=== PATIENT | male | born 1985 | race African-American/Black ===

== ENCOUNTER 2024-10-10 10:22 | Outpatient (CLI) | payer BC, SELFPAY ==
--- NOTE | 2024-10-10 10:40 | NEURO_ITS ---
Impression: # Complains of left upper extremity numbness ? # No Carpal Tunnel Syndrome ? # No Ulnar Neuropathy ? # Normal Needle/ EMG exam ? # Clinical correlation recommended Nerve Conduction Studies ?Stim Site NR Peak (ms) P-T Amp (?V) Site1 Site2 Delta-P (ms) Dist (cm) Nahid (m/s) Left Median Anti Sensory (2-3nd Digit) Wrist ? 2.7 52.9 Wrist 2-3nd Digit 2.7 14.0 52 Wrist ? 2.7 39.4 Wrist 2-3nd Digit 2.7 14.0 52 Right Median Anti Sensory (2-3nd Digit) Wrist ? 2.8 40.4 Wrist 2-3nd Digit 2.8 14.0 50 Wrist ? 2.7 36.9 Wrist 2-3nd Digit 2.8 14.0 50 Left Radial Anti Sensory (Base 1st Digit) Wrist ? 1.8 17.3 Wrist Base 1st Digit 1.8 0.0 Right Radial Anti Sensory (Base 1st Digit) Wrist ? 1.8 11.5 Wrist Base 1st Digit 1.8 0.0 Left Ulnar Anti Sensory (5th Digit) Wrist ? 2.4 29.8 Wrist 5th Digit 2.4 14.0 58 Right Ulnar Anti Sensory (5th Digit) Wrist ? 2.3 28.3 Wrist 5th Digit 2.3 14.0 61 ?Stim Site NR Onset (ms) O-P Amp (mV) Site1 Site2 Delta-0 (ms) Dist (cm) Nahid (m/s) Left Median Motor (Abd Poll Brev) Wrist ? 3.3 1.5 Elbow Wrist 4.7 27.0 57 Elbow ? 8.0 1.1 Right Median Motor (Abd Poll Brev) Wrist ? 2.8 4.4 Elbow Wrist 4.4 28.0 64 Elbow ? 7.2 4.2 Left Ulnar Motor (Abd Dig Minimi) Wrist ? 2.3 6.2 A Elbow Wrist 5.2 29.0 56 A Elbow ? 7.5 4.0 B Elbow Wrist 3.9 22.0 56 B Elbow ? 6.2 2.0 Right Ulnar Motor (Abd Dig Minimi) Wrist ? 2.4 5.3 A Elbow Wrist 5.1 29.0 57 A Elbow ? 7.5 4.6 B Elbow Wrist 3.8 20.0 53 B Elbow ? 6.2 3.3 F Wave Studies ?NR F-Lat (ms) L-R F-Lat (ms) Left Median (Mrkrs) (Abd Poll Brev) ? 26.25 1.12 Right Median (Mrkrs) (Abd Poll Brev) ? 25.13 1.12 Left Ulnar (Mrkrs) (Abd Dig Min) ? 27.58 0.55 Right Ulnar (Mrkrs) (Abd Dig Min) ? 27.03 0.55 Electromyography ?Side Muscle Nerve Root Ins Act Fibs Amp Dur Recrt Comment Right 1stDorInt Ulnar C8-T1 Nml Nml Nml Nml Nml Right Ext Indicis Radial (Post Int) C7-8 Nml Nml Nml Nml Nml Right Ext Digitorum Radial (Post Int) C7-8 Nml Nml Nml Nml Nml Right BrachioRad Radial C5-6 Nml Nml Nml Nml Nml Right PronatorTeres Median C6-7 Nml Nml Nml Nml Nml Right Abd Poll Brev Median C8-T1 Nml Nml Nml Nml Nml Right ABD Dig Min Ulnar C8-T1 Nml Nml Nml Nml Nml Right FlexPolLong Median (Ant Int) C7-8 Nml Nml Nml Nml Nml Right Abd Poll Long Radial (Post Int) C7-8 Nml Nml Nml Nml Nml Left 1stDorInt Ulnar C8-T1 Nml Nml Nml Nml Nml Left Ext Indicis Radial (Post Int) C7-8 Nml Nml Nml Nml Nml Left Ext Digitorum Radial (Post Int) C7-8 Nml Nml Nml Nml Nml Left BrachioRad Radial C5-6 Nml Nml Nml Nml Nml Left PronatorTeres Median C6-7 Nml Nml Nml Nml Nml Left Abd Poll Brev Median C8-T1 Nml Nml Nml Nml Nml Left ABD Dig Min Ulnar C8-T1 Nml Nml Nml Nml Nml Left FlexPolLong Median (Ant Int) C7-8 Nml Nml Nml Nml Nml Left Abd Poll Long Radial (Post Int) C7-8 Nml Nml Nml Nml Nml
--- OUTSIDE RECORDS SUMMARY | 2024-10-10 10:56 | XMS_ITS | Clinical Summary ---
Author Organization [facility] Address [facility] [place] [address] Care Team Providers Care Cardiac Tech Name Role Phone Will Encarnacion MD Primary Care Provider Unavail able Allergies No known active allergies Medications No known medications Active Problems Problem Noted Date Diagnosed Date Hypercholesterolemia 09/25/2013 Resolved Problems Problem Noted Date Diagnosed Date Resolved Date Encounter for preventive health examination 07/24/2013 11/03/2019 Immunizations Immunization Administration Dates Next Due Tdap (Generic) 04/15/2011 Tdap (Historical Only-select from magnify glass) 09/21/2018 Family History Medical History Relation Comments Hypertension Father Hypertension Mother Relation Status Comments Father Mother Social History Tobacco Use Types Packs/Day Years Used Date Smoking Tobacco: Never Smokeless Tobacco: Never Alcohol Use Standard Drinks/Week Comments Yes 0 (1 standard drink = 0.6 oz pur e alcohol) AUDIT-C Answer Date Recorded Frequency of Alcohol Consumption 4 or more times a week 09/21/2018 Average Number of Drinks Not on file 019 Frequency of Binge Drinking Not on file 08/24 Sex and Gender Information Value Date Recorded Sex Assigned at Not on file Legal Sex Male 11:19 PM CHEFS Gender Identity Not on file Sexual Orientation Not on file Occupation Industry Job Start Date Job End Date [employer] Not on file Not on file No t on file Last Filed Vital Signs Vital Sign Reading Time Taken Comments Blood Pressure 130/80 09/21/2018 1:30 PM CDT Pulse 72 09/21/2018 1:04 PM CDT Temperature - - Respiratory Rate 12 09/21/2018 1:30 PM CDT Oxygen Saturation - - Inhaled Oxygen Concentration - - Weight 97.5 kg (215 lb) 09/21/2018 1:04 PM CDT Height 165.1 cm (5' 5) 09/21/2018 1:04 PM CDT Body Mass Index 35.78 09/21/2018 1:04 PM CDT Plan of Treatment Health Maintenance Due Date Last Done Comments Hepatitis C 09/10/2005 Hepatitis B Vaccines (1 of 3 - 19+ 3-dose series) 09/10/2006 HPV Vaccines (1 - 3-dose SCD M series) 09/10/2014 Annual Physical 09/22/2019 09/21/2018 COVID-19 Vaccine (1 - 2023-2 5 season) 2023 DTaP, Tdap and Td Vaccines ( 3 - Td or Tdap) 09/21/2028 09/21/2018, 04/15/2011 Meningococcal B Vaccine Aged Out No l onger eligible based on patient's age to complete this topic Meningococcal Vaccine Aged Out No bernie placido eligible based on patient's age to complete this topic Pneumococcal Vaccine: Pediatrics (0 to 5 Years) and At-Risk Patients (6 to 49 Years) Aged Out No longer eligible b ased on patient's age to complete this topic RSV Immunizations Under 20 Months Aged Out No longer eligible b ased on patient's age to complete this topic Insurance Care Teams Cardiac Tech Relationship Specialty Start Date End Date Will Encarnacion MD PCP - General FAMILY PRACTICE 08/22/18
== END 2024-10-10 10:23 | disposition home or self-care (01) ==
PROVIDERS: Visit Provider Registered Nurse
DX: R20.2 Paresthesia of skin (principal)
CPT/HCPCS: 95886; 95911